=== PATIENT | female | born 1970 | race Caucasian/White ===

== ENCOUNTER 2017-09-24 18:19 | Emergency (ER) | payer OTHER ==
[~2017-09-24] VITALS: Ht 157.5 cm; Wt 74.8 kg
[~2017-09-24 18:19] MED LIST: AURALGAN EAR DR14 ML OT; CORTISPORIN EAR10 ML OT; OMEPRAZOLE10 MG
== END 2017-09-24 21:24 | disposition home or self-care (01) ==
LOC: ER 18:19
DX: H60.8X3 Other otitis externa, bilateral (principal)

== ENCOUNTER 2017-10-25 15:47 | Outpatient (CLI) | payer OTHER | END 2017-10-25 17:00 | disposition home or self-care (01) | LOC: RAD 15:47 | DX: M54.5 Low back pain (principal); M25.561 Pain in right knee ==

== ENCOUNTER 2017-11-07 14:59 | Outpatient (CLI) | payer OTHER | END 2017-11-07 15:14 | disposition home or self-care (01) | LOC: MAMO-SONO 14:59 | DX: Z12.31 Encounter for screening mammogram for malignant neoplasm of breast (principal); N60.11 Diffuse cystic mastopathy of right breast; N60.12 Diffuse cystic mastopathy of left breast ==

== ENCOUNTER 2018-02-27 08:14 | Outpatient (CLI) | payer OTHER | END 2018-02-27 08:20 | disposition home or self-care (01) | LOC: SONOGRAMA 08:14 | DX: R10.9 Unspecified abdominal pain (principal) ==

== ENCOUNTER 2018-02-27 09:27 | Outpatient (CLI) | payer OTHER | END 2018-02-27 09:34 | disposition home or self-care (01) | LOC: RAD 501 09:27 | DX: R06.02 Shortness of breath (principal) ==

== ENCOUNTER 2019-03-06 09:13 | Emergency (ER) | payer OTHER ==
[~2019-03-06] VITALS: Ht 154.9 cm; Wt 51.7 kg
[2019-03-06] MEDS ORDERED: OMEPRAZOLE40 MG (09:42)
[2019-03-06] MEDS ORDERED: AIRBORNE EFFER1 EACH PO (13:58)
[2019-03-06] MEDS ORDERED: TESSALON PERLE100 M1 PO (13:58)
[2019-03-06] MEDS ORDERED: KETO10TA2 PO (13:58)
[2019-03-06] MEDS ORDERED: PEPCID AC20 MG PO (13:58)
== END 2019-03-06 14:45 | disposition home or self-care (01) ==
LOC: ER 09:13
DX: J11.1 Influenza due to unidentified influenza virus with other respiratory manifestations (principal); E86.0 Dehydration

== ENCOUNTER → 2019-04-19 | Outpatient (CLI) | payer OTHER ==
[~2019-04-19] MED LIST changes: +AIRBORNE EFFER1 EACH PO; +KETO10TA2 PO; +OMEPRAZOLE40 MG; +PEPCID AC20 MG PO; +TESSALON PERLE100 M1 PO
== END | disposition home or self-care (01) ==
LOC: RX STUDY 08:16
DX: K31.89 Other diseases of stomach and duodenum (principal)

== ENCOUNTER → 2020-05-23 | Emergency (ER) | payer OTHER ==
[~2020-05-23] VITALS: Ht 154.9 cm; Wt 54.4 kg
[~2020-05-23] MED LIST changes: +OMEPRAZOLE MAGN20 MG
== END | disposition home or self-care (01) ==
LOC: ER 21:09
DX: R10.84 Generalized abdominal pain (principal)